=== PATIENT | female | born 1985 | race Caucasian/White ===

== ENCOUNTER 2022-07-11 10:20 | Inpatient (IN) | payer BC ==
[2022-07-11] MEDS ORDERED: hydrALAZINE 20 MG/ML VIAL SLOW IVP PRN ×3 (10:38→21:44)
[2022-07-11] MEDS ORDERED: Terbutaline Sulfate 1 MG/ML VIAL SC SCH (10:45)
[2022-07-11 11:19] VITALS: BMI 36.6
[2022-07-11 11:53] LABS: Hemoglobin 13.2 g/dL (12.0-15.5); Mean Corpuscular HGB CONC 33.8 g/dL (32.0-36.0); Mean Corpuscular Volume 85.7 fl (81.6-98.3); Mean Platelet Volume 10.9 fl (7.4-10.4); Platelet Count 240 10x3/uL (150-450); RBC Distribution Width 13.6 % (11.5-14.5); Red Blood Cell (RBC) Count 4.55 10x6/uL (3.90-5.03); White Blood Cell (WBC) Count 7.8 10x3/uL (3.5-10.5)
[2022-07-11] MEDS ORDERED: Mineral Oil ENEMA ONE (11:54)
[2022-07-11] MEDS ORDERED: CEFAZOLIN 2 GM VIAL ONE (11:54)
[2022-07-11] MEDS ORDERED: Famotidine/PF 20 mg/2ml Vial ONE (11:54)
[2022-07-11 12:08] LABS: ALT (SGPT) 508 U/L (8-55); AST (SGOT) 286 U/L (5-34); Albumin 3.3 g/dL (3.5-5.0); Alkaline Phosphatase 234 U/L (40-110); Anion Gap 15 mmol/L (10-20); BUN (Urea Nitrogen) 8 mg/dL (7.0-18.7); Bilirubin, Total 0.7 mg/dL (0.2-1.2); Calc. Creatinine Clearance 177 mL/min (70-130); Carbon Dioxide 20 mmol/L (22-29); Chloride 107 mmol/L (98-107); Estimated GFR 119; Globulin 2.3 g/dL (2.4-3.5); Glucose 79 mg/dL (70-105); Potassium 3.8 mmol/L (3.5-5.1); Protein, Total 5.6 g/dL (6.0-8.3); Sodium 138 mmol/L (136-145)
[2022-07-11 12:25] LABS: HBSAg Index 0.15 S/CO (0-0.99); Hep B Surf Ag - L&D Non-Reactive S/CO (NonReactive)
[2022-07-11 12:26] LABS: Syphilis Antibody Nonreactive (Nonreactive); Syphilis Antibody Index 0.02 S/CO (<1.00 Non-Reactive)
[2022-07-11] MEDS ORDERED: Bicitra 30 ML UDCUP PO PRN (13:37)
[2022-07-11] MEDS ORDERED: Famotidine/PF 20 mg/2ml Vial SLOW IVP PRN (13:37)
[2022-07-11] MEDS ORDERED: Ondansetron PF 4 MG/2 ML Vial IVP PRN ×3 (13:37→21:44)
[2022-07-11] MEDS ORDERED: Promethazine HCl 25 MG/ML VIAL IM PRN ×3 (13:37→21:44)
[2022-07-11] MEDS ORDERED: NS w/ Oxytocin 30 units 500 ML IV SCH ×2 (13:45→22:30)
[2022-07-11] MEDS ORDERED: CEFAZOLIN 2 GM in Sodium Chloride 0.9% 100 ML IVPB SCH (13:45)
[2022-07-11 14:49] LABS: HIV (1/2) Antibody/Antigen Non-Reactive (NonReactive)
[2022-07-11] MEDS ORDERED: Ondansetron PF 4 MG/2 ML Vial ONE (15:44)
[2022-07-11] MEDS ORDERED: Dexamethasone 4 mg/ml Vial ONE (15:47)
[2022-07-11] MEDS ORDERED: Oxytocin 10 UNITS/ML VIAL ONE (15:48)
[2022-07-11] MEDS ORDERED: Morphine PF 10 MG/10 ML VIAL ONE (16:42)
[2022-07-11] MEDS ORDERED: Fentanyl 100 MCG/2 ML VIAL ONE ×2 (16:42→19:43)
[2022-07-11] MEDS ORDERED: Phenylephrine 40 MG/NS 250 ML 250 ML ONE (17:05)
[2022-07-11 17:19] LABS: INR-International Normal Ratio 0.9; PTT 23.9 sec (22.0-33.0); Prothrombin Time 9.6 sec (9.5-12.1)
[2022-07-11] MEDS ORDERED: Naloxone HCl 0.4 mg/ml Vial IVP PRN ×2 (18:04)
[2022-07-11] MEDS ORDERED: Ondansetron HCl/PF 4 MG/2 ML Vial IVP PRN (18:04)
[2022-07-11] MEDS ORDERED: Naloxone HCl 0.4 mg/ml Vial IV PRN (18:04)
[2022-07-11] MEDS ORDERED: Meperidine HCl/PF 25 MG/ML VIAL SLOW IVP PRN (18:04)
[2022-07-11] MEDS ORDERED: Moisturizing Cream (Eucerin) 113 GM JAR TOP PRN (18:04)
[2022-07-11] MEDS ORDERED: diphenhydrAMINE 50 MG/ML VIAL IVP PRN (18:04)
[2022-07-11] MEDS ORDERED: Fentanyl 100 MCG/2 ML VIAL SLOW IVP PRN (18:04)
[2022-07-11] MEDS ORDERED: HYDROmorphone 2 MG/ML VIAL SLOW IVP PRN (18:04)
[2022-07-11] MEDS ORDERED: Promethazine HCl 25 MG SUPP PR PRN (18:04)
[2022-07-11] MEDS ORDERED: Communication Order-Pharmacy FS SCH ×2 (18:15→22:30)
[2022-07-11] MEDS ORDERED: Boostrix 0.5 ML (Tdap) VIAL (>/=7 yrs of age) IM ONE (21:44)
[2022-07-11] MEDS ORDERED: Bisacodyl 10 MG SUPP PR PRN (21:44)
[2022-07-11] MEDS ORDERED: Lanolin Ointment 7 GM TUBE TOP PRN (21:44)
[2022-07-11] MEDS ORDERED: Simethicone Chewable 80 MG TAB PO PRN (21:44)
[2022-07-11] MEDS ORDERED: Ferrous Sulfate 325 MG TAB PO SCH (22:30)
[2022-07-11] MEDS ORDERED: Docusate 100 MG CAP PO SCH (22:30)
[2022-07-12] MEDS: Ibuprofen 800 MG TAB PO SCH ×5 (05:13→21:39)
[2022-07-12 05:22] LABS: Hemoglobin 12.5 g/dL (12.0-15.5); Mean Corpuscular HGB CONC 34.4 g/dL (32.0-36.0); Mean Corpuscular Hemoglobin 29.7 pg (27.0-33.0); Mean Corpuscular Volume 86.2 fl (81.6-98.3); Mean Platelet Volume 11.2 fl (7.4-10.4); Platelet Count 217 10x3/uL (150-450); RBC Distribution Width 13.4 % (11.5-14.5); Red Blood Cell (RBC) Count 4.21 10x6/uL (3.90-5.03); White Blood Cell (WBC) Count 14.4 10x3/uL (3.5-10.5)
[2022-07-12 05:24] LABS: ALT (SGPT) 420 U/L (8-55); AST (SGOT) 271 U/L (5-34)
[2022-07-12] MEDS ORDERED: HYDROcodone/Acetaminophen 5/325 mg Tablet PO PRN ×2 (06:15)
[2022-07-12] MEDS: Docusate 100 MG CAP PO SCH ×2 (08:18→21:39)
[2022-07-12] MEDS: Prenatal Vitamin 1 TAB PO SCH (08:18)
[2022-07-12] MEDS: Ferrous Sulfate 325 MG TAB PO SCH ×2 (08:18→21:39)
[2022-07-13] MEDS: Ibuprofen 800 MG TAB PO SCH ×2 (00:48→14:35)
[2022-07-13 08:53] LABS: ALT (SGPT) 345 U/L (8-55); AST (SGOT) 154 U/L (5-34)
[2022-07-13] MEDS: Docusate 100 MG CAP PO SCH (14:34)
[2022-07-13] MEDS: Prenatal Vitamin 1 TAB PO SCH (14:35)
[2022-07-13] MEDS: Ferrous Sulfate 325 MG TAB PO SCH (14:35)
[2022-07-14] MEDS: Ibuprofen 800 MG TAB PO SCH (00:14)
[2022-07-14] MEDS: Docusate 100 MG CAP PO SCH (00:15)
[2022-07-14] MEDS: Ferrous Sulfate 325 MG TAB PO SCH (05:43)
[2022-07-14 10:08] VITALS: BP 132/73; TEMP 97.9
== END 2022-07-14 17:30 | disposition home or self-care (01) | DRG 786 ==
LOC: CSHLD/OP 10:20 → CSHLD 14:14 → CSHPP 21:25
PROVIDERS: ADMIT Obstetrics & Gynecology; ATTEND Obstetrics & Gynecology
PROC: 10D00Z1 Extraction of Products of Conception, Low, Open Approach (ICD-10-PCS; principal; 2022-07-11)
DX: O32.1XX0 Maternal care for breech presentation, not applicable or unspecified (principal); K83.1 Obstruction of bile duct; O26.62 Liver and biliary tract disorders in childbirth; Z3A.37 37 weeks gestation of pregnancy; Z37.0 Single live birth; O36.63X0 Maternal care for excessive fetal growth, third trimester, not applicable or unspecified; Z91.048 Other nonmedicinal substance allergy status; L29.9 Pruritus, unspecified; O99.72 Diseases of the skin and subcutaneous tissue complicating childbirth
CPT/HCPCS: 36415; 51702; 59412; 80053; 82239; 84450; 84460; 85027; 85610; 85730; 86780; 86850; 86900; 86901; 87340; 87389; 99285; J1100; J2274; J2405; J2590; J3010; J3105; J3490; S0028